=== PATIENT | female | born 1995 | race Caucasian/White ===

== ENCOUNTER 2021-04-29 14:03 | Emergency (ER) | payer OTHER, SELFPAY ==
--- NOTE | ~2021-04-29 | XR_ITS ---
EXAMINATION: XR foot RT min 3V DATE: 04/29/2021 14:30 INDICATION: Right foot injury and swelling. TECHNIQUE: 4 views of right foot were obtained. COMPARISON: None. FINDINGS: Bone alignment is normal. No fracture. Joint spaces are well maintained. IMPRESSION: 1. Normal right foot. Reviewed, dictated and finalized at location A. IMPRESSION: 1. Normal right foot.
[2021-04-29 14:15] VITALS: BP 123/78; PULSE 90; RESP 16; TEMP 36.4; O2SAT 98
--- NOTE | 2021-04-29 15:46 | ED.LOWEXIN ---
HPI - Extremity Injury (Lower) General Chief Complaint: Extremity Injury, Lower Stated Complaint: Right foot Pain Time Seen by Provider: 04/29/21 15:30 Source: patient and RN notes reviewed Mode of arrival: ambulatory Limitations: no limitations History of Present Illness HPI Narrative: 25 year old female present to express care with pain and swelling to her right foot after fall from steps on Friday. Patient reports that she stepped off broken stair on her back deck and laterally rolled her foot, she felt and heard a pop in her foot when it occurred and now has pain to her right lateral foot with swelling present. Patient has strong pedal pulse to her right foot with noted swelling of dorsal and lateral foot with no neuralgia present and brisk capillary refill to toes of right foot, is able to weight bear to right foot but with increased discomfort. Related Data Home Medications Medication Instructions Recorded Confirmed No Home Medications 04/29/21 04/29/21 Allergies Allergy/AdvReac Type Severity Reaction Status Date / Time No Known Allergies Allergy Verified 04/29/21 14:05 Review of Systems Review of Systems: CONSTITUTIONAL: Denies fever, chills, or sweats. EYES: Denies visual changes, redness, or discharge. ENT: Denies rhinorrhea, congestion, sore throat, or otalgia. CARDIOVASCULAR: Denies chest pain, palpitations, or edema. RESPIRATORY: Denies cough or dyspnea. GASTROINTESTINAL: Denies abdominal pain, nausea, vomiting, or diarrhea. GENITOURINARY: Denies dysuria or hematuria. SKIN: Denies rash or itching. MUSCULOSKELETAL: Denies back pain,positive for right foot swelling and pain increases with movement and weight bearing. or myalgia. NEUROLOGIC: Denies headache, numbness, or weakness. PSYCHIATRIC: Denies anxiety or depression. All systems reviewed & are unremarkable except as noted in HPI and below PMFSH Past Medical History Medical History (Updated 05/04/21 @ 09:11 by Nai Sales NP) Fracture of left forearm History of dental problems Surgical History Surgical History (Updated 05/04/21 @ 09:07 by Nai Sales NP) No history of previous surgery Family History Family History (Updated 05/04/21 @ 09:06 by Nai Sales NP) Other No significant family history Social History Social History (Updated 05/04/21 @ 09:07 by Nai Sales NP) Smoking packs per day: 0.5 Smoking cigarettes per day: 10.0 Smoking status: Current every day smoker Alcohol intake: current Alcohol use details: social Substance use type: does not use Living arrangements: with family Gender identity (if verbalized by the patient): Female Comments At time of signature, agree with nursing past medical, surgical, social and family history. There is no relevant family history pertinent to the presenting complaint Exam Narrative: GENERAL: Well-appearing, well-nourished, and in no acute distress. HEAD: Normocephalic, atraumatic. EYES: PERRLA and EOMI. ENT: Nares clear, no rhinorrhea or epistaxis. Mucous membranes moist.TM's normal, throat normal with no redness or swelling NECK: Supple.no lymphadenopathy CHEST: Clear to auscultation. No respiratory distress.SAO2 98% on room air HEART: Regular rate and rhythm. No murmur heard. Normal peripheral pulses. ABDOMEN: Soft, nontender, nondistended, normal active bowel sounds. EXTREMITIES: Normal range of motion. No edema with exception to right foot which is swollen dorsal and lateral aspect with pain on palpation and with movement or ambulation. Circulation and sensation are intact. SKIN: Warm, dry, no rash. NEURO: No focal deficits. Alert and oriented x3. Course Vital Signs Vital signs: Vital Signs Temperature 36.4 C L 04/29/21 14:15 Pulse Rate 90 04/29/21 14:15 Respiratory Rate 16 04/29/21 14:15 Blood Pressure 123/78 04/29/21 14:15 Pulse Oximetry 98 04/29/21 14:15 Temperature 36.4 C L 04/29/21 14:15 Pulse Rate 90
== END 2021-04-29 16:09 | disposition home or self-care (01) ==
PROVIDERS: Emergency Provider Registered Nurse
DX: S93.601A Unspecified sprain of right foot, initial encounter (principal); W10.9XXA Fall (on) (from) unspecified stairs and steps, initial encounter; F17.210 Nicotine dependence, cigarettes, uncomplicated
CPT/HCPCS: 73630; 99213; G0463